=== PATIENT | female | born 1945 | race Caucasian/White ===

== ENCOUNTER → 2019-01-29 | Emergency (ER) | payer MEDICARE ==
[~2019-01-29] MED LIST: Ondansetron PF 4 MG/2 ML Vial ONE
--- NOTE | 2019-01-30 12:24 | RAD ---
CHEST ONE VIEW: 01/30/19 HISTORY: Pain. Fall. COMPARISON: None. FINDINGS: Atherosclerosis of the aorta. Normal cardiac silhouette. There appears to be calcification of the mi tral annulus. Costophrenic angles are clear. No consolidation or mass. No pneumothorax or osseous abn ormalities. IMPRESSION: Atherosclerosis. No acute cardiopulmonary process. POS: [facility]
[2019-01-30 19:11] LABS: #Neutrophils 13.7 thou/uL (1.40-6.50); %Basophils 0.3 % (0.0-1.0); %Eosinophils 0.5 % (0.0-10.0); %Lymphocytes 6.4 % (21.0-51.0); %Monocytes 4.8 % (0.0-10.0); Hemoglobin 10.6 g/dL (12.0-16.0); Mean Corpuscular HGB CONC 32.6 g/dL (32.0-36.0); Mean Corpuscular Hemoglobin 26.3 pg (27.0-31.0); Mean Corpuscular Volume 80.7 fL (78.0-98.0); Mean Platelet Volume 7.2 fL (7.4-10.4); Platelet Count 349 thou/uL (130-400); RBC Distribution Width 13.4 % (11.5-14.5); Red Blood Cell (RBC) Count 4.02 mill/uL (4.20-5.40); White Blood Cell (WBC) Count 15.6 thou/uL (4.8-10.8)
[2019-01-30 19:12] LABS: #Basophils 0.1 thou/uL (0.0-0.2); #Eosinphils 0.1 thou/uL (0.0-0.7); #Monocytes 0.7 thou/uL (0.11-0.59)
[2019-01-30 19:13] LABS: Clarity Clear (Clear); Leukocyte Negative (Negative); Specific Gravity, Urine 1.014 (1.002-1.036)
[2019-01-30 19:14] LABS: Nitrite Negative (Negative); Protein, Urine (Dipstick) Negative (Neg-Trace)
[2019-01-30 19:15] LABS: Anion Gap 14 mmol/L (10-20); BUN (Urea Nitrogen) 20 mg/dL (9.8-20.1); Bilirubin Negative (Negative); Calc. Creatinine Clearance 0 mL/min (70-130); Carbon Dioxide 26 mmol/L (23-31); Chloride 101 mmol/L (98-107); Estimated GFR-MDRD 75; Glucose 135 mg/dL (83-110); Glucose, Urine (Dipstick) Negative (Negative); Icto Negative (Negative); Potassium 3.4 mmol/L (3.5-5.1); Sodium 138 mmol/L (136-145); Urobilinogen 0.2 mg/dL (0.2-1.0)
[2019-01-30 19:16] LABS: ALT (SGPT) 15 U/L (8-55); AST (SGOT) 15 U/L (5-34); Albumin 3.9 g/dL (3.4-4.8); Alkaline Phosphatase 92 U/L (40-150); Bilirubin, Total 0.4 mg/dL (0.2-1.2); Calcium 9.2 mg/dL (7.8-10.44); Globulin 2.6 g/dL (2.4-3.5); Protein, Total 6.5 g/dL (5.8-8.1); Troponin I Less than 0.010 ng/mL (< 0.028)
[2019-01-30 19:17] LABS: Bacteria/HPF None Seen HPF (None Seen); Hyaline Casts/LPF 7-10 HYALINE CAST LPF (0-3 Hyaline); Pathc Cast-AUWi Flag 2.04 (0-2.49); RBC/HPF 0-3 HPF (0-3); Squamous Epithelial 0-3 HPF (0-3); WBC/HPF None Seen HPF (0-3)
[2019-01-30 19:18] LABS: Blood, Urine Negative (Negative)
--- NOTE | 2019-02-01 16:54 | EKG ---
Test Reason : Blood Pressure : / mmHG Vent. Rate : 091 BPM Atrial Rate : 091 BPM P-R Int : 186 ms QRS Dur : 088 ms QT Int : 380 ms P-R-T Axes : 041 009 011 degrees QTc Int : 467 ms Normal sinus rhythm Normal ECG Confirmed by SHANNON CHILDERS M.D. ([id number]), field map editor FATOUMATA ACUNA ([id number]) on 02/01/2019 4:53:51 PM Referred By: Confirmed By:SHANNON CHILDERS M.D.
== END ==
LOC: ERS 23:13
DX: R55 Syncope and collapse (principal); R11.2 Nausea with vomiting, unspecified; I25.10 Atherosclerotic heart disease of native coronary artery without angina pectoris; I10 Essential (primary) hypertension; E78.5 Hyperlipidemia, unspecified; E03.9 Hypothyroidism, unspecified
CPT/HCPCS: 51701; 71045; 80053; 81001; 84484; 85025; 93005; A4353

== ENCOUNTER 2019-02-04 11:24 | Inpatient (IN) | payer MEDICARE ==
--- NOTE | 2019-02-04 12:17 | CT ---
CT Brain WO Con HISTORY: Syncope COMPARISON: None. FINDINGS: There is generalized ventricular and sulcal prominence. There is decreased attenuation to t he periventricular white matter consistent with some chronic ischemic white matter change. Fairly extensive vascular calcifications are seen in the cavernous portions of the internal carotid and some of the middle cerebral artery branches. There are no signs of intracerebral hemorrhage or extra-axial fluid collections. The mastoid air cells and visualized sinuses are clear. IMPRESSION: No acute intracranial abnormalities.
[2019-02-04 12:21] LABS: Hemoglobin 8.2 g/dL (12.0-16.0); Mean Corpuscular HGB CONC 32.7 g/dL (32.0-36.0); Mean Corpuscular Hemoglobin 26.7 pg (27.0-31.0); Mean Corpuscular Volume 81.6 fL (78.0-98.0); Mean Platelet Volume 6.3 fL (7.4-10.4); Platelet Count 307 thou/uL (130-400); RBC Distribution Width 14.9 % (11.5-14.5); Red Blood Cell (RBC) Count 3.07 mill/uL (4.20-5.40); White Blood Cell (WBC) Count 10.2 thou/uL (4.8-10.8)
--- NOTE | 2019-02-04 12:21 | RAD ---
EXAM: Single view of the chest HISTORY: Syncope COMPARISON: 01/29/2019 FINDINGS: Single view of the chest shows a normal sized cardiomediastinal silhouette. Atheroscleroti c calcification are seen in the aorta. There is no evidence of consolidation, mass, or pleural effusion. The bones are unremarkable. IMPRESSION: No evidence of acute cardiopulmonary disease
[2019-02-04 12:44] LABS: ALT (SGPT) 15 U/L (8-55); AST (SGOT) 17 U/L (5-34); Albumin 4.1 g/dL (3.4-4.8); Alkaline Phosphatase 89 U/L (40-150); Anion Gap 14 mmol/L (10-20); BUN (Urea Nitrogen) 11 mg/dL (9.8-20.1); Bilirubin, Total 0.6 mg/dL (0.2-1.2); Calc. Creatinine Clearance 0 mL/min (70-130); Carbon Dioxide 29 mmol/L (23-31); Chloride 98 mmol/L (98-107); Estimated GFR-MDRD 73; Glucose 112 mg/dL (83-110); Lipase 29 U/L (8-78); Potassium 3.5 mmol/L (3.5-5.1); Protein, Total 7.1 g/dL (6.0-8.3); Sodium 137 mmol/L (136-145)
[2019-02-04 12:48] LABS: Band 1 % (5-11); Eosinophils 2 % (0-10); Lymphocytes 16 % (21-51); MDiff Complete? YES; Monocytes 3 % (0-10); Neutrophil 78 % (42-75); Platelet Morphology Comment Appears Adequate; Polychromasia MODERATE = 3-4 cells (100X) (0-2/hpf)
[2019-02-04] MEDS ORDERED: Meclizine HCl 25 MG TAB ONE (14:10)
[2019-02-04 14:14] LABS: Bilirubin Negative (Negative); Blood, Urine Trace (Negative); Clarity Clear (Clear); Glucose, Urine (Dipstick) Negative (Negative); Leukocyte Negative (Negative); Nitrite Negative (Negative); Protein, Urine (Dipstick) Negative (Neg-Trace); Urobilinogen 0.2 mg/dL (0.2-1.0); pH, Urine 7.5 (5.0-9.0)
[2019-02-04 14:23] LABS: RBC/HPF 0-3 HPF (0-3); WBC/HPF None Seen HPF (0-3)
[2019-02-04 14:24] LABS: Bacteria/HPF 2+ HPF (None Seen); Crystals/HPF 2+ AMORPH URATES HPF (Negative); Hyaline Casts/LPF 0-3 HYALINE CAST LPF (0-3 Hyaline); Squamous Epithelial 0-3 HPF (0-3)
[2019-02-04 17:32] LABS: Troponin I 0.011 ng/mL (< 0.028)
[2019-02-04] MEDS ORDERED: Sodium Chloride 0.45% 1,000 ML IV SCH (18:15)
[2019-02-04] MEDS ORDERED: Ondansetron PF 4 MG/2 ML Vial IVP PRN (18:21)
[2019-02-04 18:23] VITALS: BMI 35.9
[2019-02-04 18:40] LABS: Hemoglobin 7.8 g/dL (12.0-16.0)
[2019-02-04] MEDS ORDERED: Sodium Chloride 0.9% 1,000 ML IV SCH (19:00)
[2019-02-04 19:09] LABS: Troponin I Less than 0.010 ng/mL (< 0.028)
--- NOTE | 2019-02-04 19:54 | HP ---
CHIEF COMPLAINT: Nausea, vomiting, diarrhea, and weakness. HISTORY OF PRESENT ILLNESS: Ms. Souza is a 73-year-old woman, who presents to the emergency department today after having a bout of weakness followed by profuse vomiting and diarrhea. The patient reports noting black-colored stools and her daughter reports noting what appeared to be a maroon or coffee-grounds emesis. The daughter states this was mixed in with clear vomit as well. She states the patient had been vomiting into the trash and therefore difficult to fully assess. The patient had a similar episode prompting a visit to the ER on January 29, 2019. The patient states at that time she had been walking to the kitchen when she suddenly felt extremely weak, bringing her down to her knees. She began to crawl to the bedroom and then went to use the toilet. She was on the phone with her daughter at that time and suddenly began to experience profuse vomiting and diarrhea simultaneously, the patient states her daughter called EMS and brought her to the emergency department, where she was given medications for nausea. She was discharged home. At that time, laboratory studies were notable for slightly elevated white count of 15.6. Her hemoglobin was 10.6 and today this has dropped to 8.2. She reports doing fairly well over the weekend and maintained a bland and liquid diet; however, continued to feel weak and tired. She states this is what has been most drastically different compared to Father's Day weekend when she walked 4 miles round trip without any difficulty. The patient denies having any associated abdominal pain. She states she has no known gastric ulcers or any history of GI bleeds. She does report undergoing an EGD and colonoscopy in 2013 at a hospital in [place], but does not recall the name of the GI specialist. She states following that procedure, she was told she had esophageal reflux disease, but no other findings. The patient states she is normally fit and well and very independent. Today, the patient experienced clamminess before the episode of vomiting and diarrhea, but again has been generally weak. She denies experiencing any dizziness. No vision changes. No speech disturbances. No neuro type symptoms. Denies having any fevers. Denies having any chest pain, palpitations, or shortness of breath. She is seen by Dr. Head regularly due to concern for an ME in the past, which she states she did not have. However, she just continued to see Dr. Head. She had her last appointment one month ago. In the ER, patient has been given a bolus of normal saline 500 mL and treated with Antivert 50 mg p.o. x1. She was admitted due to concerns for dizziness and further workup for possible TIA/stroke. REVIEW OF SYSTEMS: The patient denies noting any recent drastic change in her weight. Again denies having any abdominal pain. No urinary symptoms. No headaches or dizziness. Normally, she has regular bowel movements without any diarrhea or constipation. All other review of systems is negative. PAST MEDICAL HISTORY: 1. Hypertension. 2. GERD. 3. Hypercholesterolemia. 4. Hypothyroidism. PAST SURGICAL HISTORY: Hysterectomy. SOCIAL HISTORY: No history of tobacco use, alcohol use, or drug use. PHYSICAL EXAMINATION: GENERAL: The patient appears well developed and in no acute distress. VITAL SIGNS: Temperature 98.9, pulse 81, respirations 20, blood pressure 114/87, and O2 saturation 99% on room air. HEENT: Normocephalic and atraumatic. Pupils are equal, round, and reactive to light. Extraocular movements intact. Sclerae are anicteric. Oropharynx is clear. NECK: Supple. LUNGS: Clear to auscultation bilaterally. CARDIAC: Regular rate and rhythm. ABDOMEN: Soft, obese, nontender, nondistended. Normoactive bowel sounds present. No guarding or rigidity. No renal angle tenderness. EXTREMITIES: No lower leg edema or calf tenderness. NEUROLOGIC: Alert and oriented x3. Cranial nerves 3 through 12 were intact. No neuro deficits. Speech normal. Facial movements normal. SKIN: Pale without rash or jaundice. LABORATORY DATA: White blood count 10.2, hemoglobin 8.2, hematocrit 25.1, platelets 207. Sodium 137, potassium 3.5, anion gap 14, BUN 11, creatinine 0.77, GFR 73, glucose 112, calcium 11, total bilirubin 0.6, AST 17, ALT 15, alkaline phosphatase 89. Troponin-I negative x3. Total protein 7.1, albumin 4.1, lipase 29. Urinalysis notable for trace blood and 2+ bacteria, otherwise negative. IMAGING DATA: 1. Chest x-ray on February 04, 2019. Unremarkable. 2. CT of the brain on February 04, 2019. No acute intracranial abnormalities present. There is decreased attenuation to the periventricular white matter, consistent with chronic ischemic white matter change. Fairly extensive vascular calcifications seen in the cavernous portions of the internal carotid and some of the middle cerebral artery branches. No signs of intracerebral hemorrhage or extra-axial fluid collections. Mastoid air cells and visualized sinuses clear. IMPRESSION AND PLAN: Ms. Souza is a very pleasant 73-year-old woman with a known history of hypertension, hypothyroidism, and gastroesophageal reflux disease, who is being kept overnight for continued workup of the following. 1. Anemia. The patient was seen on January 29, at which time she had a hemoglobin of 10.6, which has dropped to 8.2. The patient reports having possibly coffee-grounds emesis and black stools. This could be potentially be the reason for the weakness. Stool hemoccult is positive. We will repeat hemoglobin and hematocrit and if further reduced, we will plan for packed red blood cell transfusion. GI consult has been requested. At present, the patient is asymptomatic. We will start IV Protonix b.i.d. and we will keep the patient n.p.o. until seen by GI. 2. Nausea, vomiting, and diarrhea. The patient remains asymptomatic at present. We will continue IV ondansetron for nausea. 3. Hypertension. Blood pressure 168/73 at initial presentation and most recent blood pressure was 114/87. We will monitor her blood pressure closely and we will start IV fluids. We will hold her antihypertensives for now. The patient is being admitted to telemetry. 4. Hypothyroidism. We will check TSH with morning labs. We will resume levothyroxine once verified. 5. Deep venous thrombosis prophylaxis with mechanical SCDs only. 6. Code status. The patient states she does not wish to be intubated, but otherwise agreeable to any resuscitative efforts. Her surrogate decision maker is her daughter, Alessia Nieves. The patient's case was discussed with Dr. Conklin, who agrees with plan of care as described above. Job ID: [id number]
[2019-02-04] MEDS: Pantoprazole 40 MG VIAL IVP SCH (22:15)
[2019-02-04] MEDS: Sodium Chloride 0.45% 1,000 ML IV SCH (22:15)
[2019-02-04 22:50] LABS: Hemoglobin 7.4 g/dL (12.0-16.0)
[2019-02-05 02:51] LABS: ALT (SGPT) 15 U/L (8-55); AST (SGOT) 17 U/L (5-34); Albumin 3.7 g/dL (3.4-4.8); Alkaline Phosphatase 84 U/L (40-150); Anion Gap 13 mmol/L (10-20); BUN (Urea Nitrogen) 9 mg/dL (9.8-20.1); Band 4 % (5-11); Bilirubin, Total 0.7 mg/dL (0.2-1.2); Calc. Creatinine Clearance 92 mL/min (70-130); Calcium 9.6 mg/dL (7.8-10.44); Carbon Dioxide 28 mmol/L (23-31); Chloride 102 mmol/L (98-107); Eosinophils 6 % (0-10); Estimated GFR-MDRD 77; Globulin 2.7 g/dL (2.4-3.5); Glucose 93 mg/dL (83-110); Hemoglobin 8.2 g/dL (12.0-16.0); Lymphocytes 21 % (21-51); MDiff Complete? YES; Mean Corpuscular HGB CONC 33.1 g/dL (32.0-36.0); Mean Corpuscular Hemoglobin 27.7 pg (27.0-31.0); Mean Corpuscular Volume 83.8 fL (78.0-98.0); Mean Platelet Volume 6.7 fL (7.4-10.4); Monocytes 5 % (0-10); Neutrophil 63 % (42-75); Platelet Count 293 thou/uL (130-400); Protein, Total 6.4 g/dL (6.0-8.3); RBC Distribution Width 15.7 % (11.5-14.5); Red Blood Cell (RBC) Count 2.96 mill/uL (4.20-5.40); Sodium 140 mmol/L (136-145); White Blood Cell (WBC) Count 8.4 thou/uL (4.8-10.8)
[2019-02-05 02:54] LABS: Potassium 2.8 mmol/L (3.5-5.1)
[2019-02-05] MEDS ORDERED: Potassium Chloride 20 MEQ TAB PO SCH (03:15)
[2019-02-05 06:04] LABS: Anion Gap 10 mmol/L (10-20); Carbon Dioxide 29 mmol/L (23-31); Chloride 102 mmol/L (98-107); Potassium 3.3 mmol/L (3.5-5.1); Sodium 138 mmol/L (136-145)
[2019-02-05 06:39] LABS: Hemoglobin 8.5 g/dL (12.0-16.0)
[2019-02-05] MEDS: Levothyroxine Sodium 100 MCG TAB PO SCH (08:56)
[2019-02-05] MEDS: Sodium Chloride 0.45% 1,000 ML IV SCH ×3 (08:57→21:40)
[2019-02-05] MEDS: Pantoprazole 40 MG VIAL IVP SCH ×2 (09:53→21:40)
--- NOTE | 2019-02-05 15:34 | PDOC.PN ---
- Subjective Encounter Start Date: 02/05/19 Encounter Start Time: 15:32 Patient lying in bed, she reports feeling better. She denies any chest pain, palpitations, shortness of breath or abdominal pain. Hgb stable at 8.5. GI planning EGD tomorrow - Objective Resuscitation Status - Order Detail: 02/04/19 18:17 Resuscitation Status Routine Co-Sign Provider: Resuscitation Status: PRTL: Cardiac only Discussed with: Patient and daughter KAYLEY Reviewed: Yes Vital Signs & Weight: Vital Signs (12 hours) Temp Pulse Pulse Resp BP BP Pulse Ox 02/05/19 11:31 98.1 F 74 18 116/79 97 02/05/19 07:46 97.8 F 67 14 131/62 97 02/05/19 04:00 98 F 69 16 132/63 99 02/05/19 03:33 98.0 F 70 18 123/55 L 97 Weight Weight 189 lb 12.8 oz I&O: 02/04/19 02/05/19 02/06/19 06:59 06:59 06:59 Intake Total 1500 800 Balance 1500 800 Result Diagrams: 02/05/19 06:25 02/05/19 05:19 Radiology Reviewed by me: Yes Phys Exam - Physical Examination Constitutional: NAD HEENT: moist MMs, oral pharynx no lesions Edentulous Neck: no nodes, full ROM Respiratory: no wheezing, clear to auscultation bilateral Cardiovascular: RRR, no significant murmur Gastrointestinal: soft, positive bowel sounds Musculoskeletal: pulses present Neurological: moves all 4 limbs Lymphatic: no nodes Psychiatric: normal affect, A&O x 3 Skin: cap refill <2 seconds Dx/Plan (1) Anemia Code(s): D64.9 - ANEMIA, UNSPECIFIED Status: Acute (2) HTN (hypertension) Code(s): I10 - ESSENTIAL (PRIMARY) HYPERTENSION Status: Acute (3) Hypothyroidism Code(s): E03.9 - HYPOTHYROIDISM, UNSPECIFIED Status: Acute (4) Asymptomatic bacteriuria Code(s): R82.71 - BACTERIURIA Status: Acute - Plan cont current plan of care * Continue clear liquid diet then NPO at midnight * GI planning EGD in am * Recheck CBC in am * Transfuse as needed for Hgb <7.0 * Urine showing 2+ bacteria patient denies symptoms, send for culture
--- NOTE | 2019-02-05 20:58 | CON ---
DATE OF CONSULTATION: 02/05/2019 REASON FOR CONSULTATION: Nausea, vomiting, concern for GI bleed. HISTORY OF PRESENT ILLNESS: Mrs. Souza is a 73-year-old female who presents to the ER after having sudden onset of nausea, vomiting, associated diarrhea yesterday. According to the niece, the emesis has some red tinge to it and the diarrhea was black and foul smelling. The patient has not had any further nausea, vomiting, or diarrhea since admission. She denies having any abdominal pain or discomfort. Six days ago, she sustained a fall at home. At that time, she had projectile bilious vomiting that resolved. Two weeks ago, she presented to the ER after having diarrhea. At that time, she took milk of magnesia [id number] for constipation. She denies having had any previous gastrointestinal issue. She had upper and lower endoscopy in [place], [place] in 2013. Currently, she feels fine without any other complaint. PAST MEDICAL HISTORY: 1. Hypertension. 2. Hyperlipidemia. 3. Hypothyroidism. 4. GE reflux disease. 5. Status post hysterectomy. ALLERGIES: NO KNOWN DRUG ALLERGY. MEDICATIONS: At home include; 1. Simvastatin 20 mg at bedtime. 2. Synthroid 100 mcg daily. 3. Chlorthalidone 12.5 mg daily. 4. Zofran ODT 4 mg p.r.n. nausea, vomiting. SOCIAL HISTORY: The patient does not have any tobacco or alcohol usage. No illicit drug use. FAMILY HISTORY: Negative for any known GI problem, liver disease, GI malignancy. REVIEW OF SYSTEMS: A 10-point review of systems did not show any other pertinent positives or negatives. PHYSICAL EXAMINATION: VITAL SIGNS: Temperature is 98.1, blood pressure 116/79, pulse of 74. GENERAL: She is alert, conversant, does not appear in any distress. HEENT: Show anicteric sclerae. Oropharynx is clear. NECK: Supple. CV: Shows normal S1, S2. Regular rate and rhythm. CHEST: Shows breath sounds. ABDOMEN: Soft, mildly protuberant, nontender. There is no distention. No tympany. She has active bowel sounds. There is no tenderness elicited. Organomegaly is not appreciated. She has active bowel sounds. EXTREMITIES: Show no edema. LABORATORY DATA: Sodium 138, potassium 3.3, chloride 102, creatinine 0.74, BUN of 9, bilirubin 0.7, AST 17, ALT 15, alkaline phosphatase 84. WBC 8.4, hemoglobin 8.5 (7.4 last night) and platelet count of 293. ASSESSMENT: 1. The patient with acute onset of nausea, vomiting, and diarrhea with possible limited hematemesis and reported melena. The patient has no further signs of any clinically active gastrointestinal hemorrhage since admission. Her blood count shows anemia, but hemoglobin has been stable since admission. Her hemoglobin last week was 10.6. 2. Acute on chronic anemia, stable, likely possibly related to rehydration and component of gastrointestinal blood loss. 3. Possible limited upper gastrointestinal bleed. RECOMMENDATION: 1. We will start on clear liquids. 2. We will set up for upper endoscopy in a.m. 3. Continue pantoprazole 40 mg IV b.i.d. 4. Further recommendations to follow pending above findings. Job ID: [id number]
[2019-02-05] MEDS: Sodium Chloride 0.9% (PF) 10 ML VIAL FS PRN (21:41)
[2019-02-05] MEDS: Atorvastatin Calcium 10 MG TAB PO SCH (21:41)
[2019-02-06] MEDS: Levothyroxine Sodium 100 MCG TAB PO SCH (06:11)
[2019-02-06] MEDS: Sodium Chloride 0.45% 1,000 ML IV SCH ×2 (07:36→20:54)
[2019-02-06] MEDS ORDERED: Ondansetron HCl/PF 4 MG/2 ML Vial IVP PRN (10:34)
[2019-02-06] MEDS ORDERED: Promethazine HCl 25 MG/ML VIAL IM PRN (10:34)
[2019-02-06] MEDS ORDERED: Promethazine HCl 25 MG/ML VIAL SLOW IVP PRN (10:34)
--- NOTE | 2019-02-06 10:58 | OP ---
DATE OF PROCEDURE: 02/06/2019 PROCEDURE PERFORMED: Esophagogastroduodenoscopy with control of hemorrhage. PREOPERATIVE DIAGNOSES: Gastrointestinal bleed and anemia of acute blood loss. DESCRIPTION OF PROCEDURE: Informed consent was obtained from the patient. She was sedated with total intravenous anesthesia. The bite block was placed and the endoscope was advanced easily to the second portion of the duodenum and retroflexion was performed in the stomach. The esophagus was normal. The GE junction was normal. There was a single actively bleeding red spot in the distal body of the stomach along the greater curvature. This was cauterized with a 10-Japanese Gold Probe with good hemostasis achieved. This was either a small AVM or an underlying Dieulafoy lesion. The stomach was normal in retroflexed views. The pylorus and first and second portions of the duodenum were normal. IMPRESSION: 1. Actively bleeding Dieulafoy lesion in the body of the stomach along the greater curvature cauterized with a 10-Japanese Gold Probe with good hemostasis confirmed. 2. Otherwise normal esophagogastroduodenoscopy. RECOMMENDATIONS: 1. Advance diet. 2. Check hemoglobin in the morning. 3. Proton pump inhibitor daily for a month. 4. Anticipate discharge home tomorrow. Follow up with Dr. Duncan in a month. Job ID: [id number]
[2019-02-06] MEDS: Sodium Chloride 0.9% (PF) 10 ML VIAL FS PRN (11:26)
[2019-02-06] MEDS: Pantoprazole 40 MG VIAL IVP SCH (11:27)
[2019-02-06 12:40] LABS: #Eosinphils 0.2 thou/uL (0.0-0.7); #Monocytes 0.5 thou/uL (0.11-0.59); #Neutrophils 4.7 thou/uL (1.40-6.50); %Basophils 0.1 % (0.0-1.0); %Eosinophils 2.7 % (0.0-10.0); %Lymphocytes 15.9 % (21.0-51.0); %Monocytes 8.1 % (0.0-10.0); %Neutrophils 73.3 % (42.0-75.0); Hemoglobin 8.7 g/dL (12.0-16.0); Mean Corpuscular HGB CONC 32.6 g/dL (32.0-36.0); Mean Corpuscular Hemoglobin 27.5 pg (27.0-31.0); Mean Corpuscular Volume 84.3 fL (78.0-98.0); Mean Platelet Volume 6.2 fL (7.4-10.4); Platelet Count 241 thou/uL (130-400); RBC Distribution Width 15.6 % (11.5-14.5); Red Blood Cell (RBC) Count 3.15 mill/uL (4.20-5.40); White Blood Cell (WBC) Count 6.4 thou/uL (4.8-10.8)
[2019-02-06] MEDS: Atorvastatin Calcium 10 MG TAB PO SCH (20:54)
[2019-02-07] MEDS: Levothyroxine Sodium 100 MCG TAB PO SCH (05:55)
--- NOTE | 2019-02-07 07:46 | PDOC.PN ---
- Subjective Encounter Start Date: 02/06/19 Encounter Start Time: 11:00 Doing well following EGD with cauterization. No abdominal pain. - Objective Resuscitation Status - Order Detail: 02/04/19 18:17 Resuscitation Status Routine Co-Sign Provider: Resuscitation Status: PRTL: Cardiac only Discussed with: Patient and daughter Vital Signs & Weight: Vital Signs (12 hours) Temp Pulse Resp BP Pulse Ox 02/07/19 03:50 97.7 F 68 16 136/65 96 02/06/19 23:43 98 F 68 16 137/65 96 02/06/19 21:05 98 02/06/19 19:51 97.8 F 74 16 139/67 95 Weight Weight 189 lb 12.8 oz I&O: 02/06/19 02/07/19 02/08/19 06:59 06:59 06:59 Intake Total 1939 1240 Balance 1939 1240 Result Diagrams: 02/06/19 12:30 02/05/19 05:19 Phys Exam - Physical Examination Constitutional: NAD Respiratory: no wheezing, no rales, no rhonchi Cardiovascular: RRR, no significant murmur, no rub Gastrointestinal: soft, non-tender, no distention, positive bowel sounds Musculoskeletal: no edema Neurological: non-focal Psychiatric: normal affect, A&O x 3 Dx/Plan (1) Dieulafoy lesion of stomach Code(s): K31.82 - DIEULAFOY LESION (HEMORRHAGIC) OF STOMACH AND DUODENUM Status: Acute (2) UGIB (upper gastrointestinal bleed) Code(s): K92.2 - GASTROINTESTINAL HEMORRHAGE, UNSPECIFIED Status: Acute (3) Anemia Code(s): D64.9 - ANEMIA, UNSPECIFIED Status: Acute (4) HTN (hypertension) Code(s): I10 - ESSENTIAL (PRIMARY) HYPERTENSION Status: Acute (5) Hypothyroidism Code(s): E03.9 - HYPOTHYROIDISM, UNSPECIFIED Status: Acute - Plan * Lesion cauterized. * Advancing diet. * May be able to DC tomorrow.
--- NOTE | 2019-02-07 09:45 | DIS ---
DATE OF ADMISSION: 02/04/2019 DATE OF DISCHARGE: 02/07/2019 DISCHARGE DIAGNOSES: 1. Upper gastrointestinal bleed. 2. Dieulafoy lesion of the stomach. 3. Anemia of acute blood loss. 4. Hypertension. 5. Hypothyroidism. HISTORY OF PRESENT ILLNESS: This patient is a 73-year-old female, who presented to the emergency department with complaints of generalized weakness, nausea, vomiting, diarrhea, and black stools. She was noted to have hemoglobin of 8.2. Negative troponins. She was admitted to the hospital with anemia, nausea, vomiting, diarrhea, and concern for GI bleeding. HOSPITAL COURSE: The patient was seen in consultation by the Gastroenterology Service and serial hemoglobins were followed. Her hemoglobin dropped down to 7.4. She required transfusion of 1 unit of packed red blood cells. She underwent endoscopy on 02/[address] Roberto. He found actively bleeding Dieulafoy lesion in the body of the stomach along the greater curvature. This was cauterized with good hemostasis confirmed. No other findings were noted. The patient was placed on PPI and her diet was advanced. Her hemoglobin remained stable and at the time of discharge, it was 8.7. Her blood pressure remained stable and she was not tachycardic. She was therefore felt to be stable for discharge to home. PHYSICAL EXAMINATION: VITAL SIGNS: On the day of discharge, temperature is 97.8, pulse 69, respirations 18, O2 saturation 98% on room air, and blood pressure 128/62. GENERAL APPEARANCE: Age-appropriate female. She is in no distress. Awake, alert, oriented, very pleasant, and cooperative. HEART: Regular. LUNGS: Clear. ABDOMEN: Soft, nontender, and nondistended with normal bowel sounds. EXTREMITIES: Have no edema. DISPOSITION: The patient is discharged to home. DIET: She will be on a regular diet. ACTIVITY: Her activity level is as tolerated, although she is encouraged to keep in mind that she is still anemic and she should avoid excessive exposure to heat or over exertion. DISCHARGE MEDICATIONS: She will be on her usual home medications of; 1. Simvastatin 20 mg p.o. at bedtime. 2. Zofran p.r.n. 3. Levothyroxine 100 mcg p.o. daily. 4. Chlorthalidone 12.5 mg p.o. daily. 5. Protonix 40 mg daily. Additionally, she will have a prescription for Protonix 40 mg p.o. daily. FOLLOWUP: She is to follow up with her primary care physician, Dr. Patiño, as scheduled on the and she is to follow up with GI in 1 month as well. She can return to the hospital should she have any problems prior to that time. Time spent in discharge activities, including face to face time with the patient , was 36 min. Job ID: [id number] [id number]
[2019-02-07 11:41] VITALS: BP 136/72; TEMP 97.4
[2019-02-07] MEDS: Sodium Chloride 0.45% 1,000 ML IV SCH (11:41)
== END 2019-02-07 14:44 | disposition home or self-care (01) | DRG 378 ==
LOC: ERS 11:24 → OBSVTOIN 18:10 → 2SE 18:10
PROVIDERS: ADMIT Emergency Medicine; ATTEND Emergency Medicine
PROC: 0W3P8ZZ Control Bleeding in Gastrointestinal Tract, Via Natural or Artificial Opening Endoscopic (ICD-10-PCS; principal; 2019-02-06)
DX: K31.82 Dieulafoy lesion (hemorrhagic) of stomach and duodenum (principal); D62 Acute posthemorrhagic anemia; E78.00 Pure hypercholesterolemia, unspecified; I10 Essential (primary) hypertension; K21.9 Gastro-esophageal reflux disease without esophagitis; E03.9 Hypothyroidism, unspecified; R82.71 Bacteriuria; Z79.899 Other long term (current) drug therapy; Z90.710 Acquired absence of both cervix and uterus
CPT/HCPCS: 36415; 36430; 70450; 71045; 80053; 81003; 81015; 82274; 83690; 83735; 84443; 84484; 85025; 86850; 86900; 86901; 87086; 93005; C9113; J8597; P9016